=== PATIENT | female | born 1990 | race Caucasian/White ===

== ENCOUNTER → 2019-03-08 | Outpatient (CLI) | payer BC ==
--- NOTE | 2019-03-08 12:48 | RADIOLOGY IMAGING REPORT ---
FACILITY: [facility] - [place] PATIENT NAME: Judith Ross : 1990 MR: [id number] V: [id number] EXAM DATE: ORDERING PHYSICIAN: SOL KASPER TECHNOLOGIST: Location: [facility] [place] Patient: Judith Ross : 1990 Visit/Account:[id number] Date of Sevice: 03/08/2019 Technique: GALLBLADDER HISTORY: Right upper Quadrant pain Comparison: None Technique: Multiple grayscale, color and Doppler sonographic images were obtained for an ultrasound o f the right upper quadrant. Findings: Liver is normal in size, contour, and echotexture and measures 13.3 cm in length. There is normal hep atopedal portal venous flow. Gallbladder wall thickness is 2 mm with no evidence of shadowing stone or sludge within the gallbladd er lumen. Positive sonographic Mera's sign reported by the technologist. Common duct measures 5 mm in maximum diameter with no evidence of shadowing stone. Imaged portions of the pancreas are unremarkable. Abdominal aorta and IVC are patent and unremarkable. The right kidney is normal in size, contour, and echotexture measuring 10.5 cm x 3.0 cm x 5.2 cm. IMPRESSION: 1. Positive Mera's sign. No evidence of cholelithiasis. Remaining right upper quadrant ultrasound is unremarkable. Report Dictated By: Honorio Love DO at 03/08/2019 12:37 PM Report E-Signed By: Honorio Love DO at 03/08/2019 12:40 PM WSN:[email or web address]
--- NOTE | 2019-03-08 12:49 | RADIOLOGY IMAGING REPORT ---
FACILITY: [facility] - [place] PATIENT NAME: Juidth Ross : 1990 MR: [id number] V: [id number] EXAM DATE: ORDERING PHYSICIAN: SOL KASPER TECHNOLOGIST: Location: [facility] - [place] Patient: Judith Ross : 1990 Visit/Account:[id number] Date of Sevice: 03/08/2019 Technique: US ABD LIMITED ULTRASOUND HISTORY: Abdominal pain Comparison studies: None FINDINGS: Grayscale and color images were obtained of the right lower quadrant. Appendix is not visu alized. No free fluid or lymphadenopathy appreciated. IMPRESSION: 1. Nonvisualization of the appendix. No secondary signs of acute appendicitis such as free fluid wi thin the right lower quadrant or lymphadenopathy. Report Dictated By: Honorio Love DO at 03/08/2019 12:41 PM Report E-Signed By: Honorio Love DO at 03/08/2019 12:41 PM WSN:[email or web address]
== END ==
LOC: US 00:55
PROVIDERS: ATTEND Family Medicine
DX: R10.11 Right upper quadrant pain (principal); R10.31 Right lower quadrant pain
CPT/HCPCS: 76705